=== PATIENT | female | born 1950 | race American Indian/Alaskan Native ===

== ENCOUNTER 2017-05-30 10:27 | Outpatient (CLI) | payer OTHER ==
--- NOTE | 2017-05-30 13:15 | Mammography Report ---
BILATERAL DIGITAL SCREENING MAMMOGRAM with CAD: 05/30/17 10:27:00 CLINICAL: Routine screening. COMPARISON:02/21/16 and 10/26/14 FINDINGS: The breasts are almost entirely fatty.Stable left asymmetries. No new mass, architectural distortion or suspicious calcifications. IMPRESSION: No mammographic evidence of malignancy. BI-RADS CATEGORY: 2 -- Benign RECOMMENDATION: Routine mammographic screening in one year. COMMENT: Patient follow-up letters are generated by our [employer] application.
== END 2017-05-30 10:28 | disposition home or self-care (01) ==
LOC: MAMMO 10:27
PROVIDERS: ATTEND Family Medicine
DX: Z12.31 Encounter for screening mammogram for malignant neoplasm of breast (principal)
CPT/HCPCS: 77067; G0202